=== PATIENT | male | born 1985 | race Caucasian/White ===

== ENCOUNTER 2019-07-13 09:34 | Emergency (ER) | payer OTHER, SELFPAY ==
[2019-07-13 09:49] VITALS: BP 118/73; PULSE 86; RESP 16; TEMP 36.6; O2SAT 99
--- NOTE | 2019-07-13 10:06 | ED.ALLEREA ---
HPI - Allergic Reaction General Chief complaint: Allergic Reaction Stated complaint: fever/headache/pos allergic reaction to medicine Time Seen by Provider: 07/13/19 10:07 Source: patient and RN notes reviewed History of Present Illness HPI narrative: Patient is a 33-year-old male that presents the urgent care with complaints of an infection to the second and third digits of the left foot. Patient states that he called tele-med on Saturday and was given Keflex. Patient states that he took the full days worth on Saturday and then 1 dose yesterday and both times he developed severe redness throughout his body. Patient states that he called tele-med back this morning and they told him to follow-up to make sure he did not have a blood infection . Patient is aware that we do not do labs at our facility. Patient denies any streaking or swelling of the area. States that it is pretty much unchanged since the infection started a few weeks ago. Patient denies any shortness of breath or difficulty breathing. Patient is also been using prescription cream as directed from tele-med. Denies any fever currently. Denies any nausea or vomiting. No other acute complaints. No acute distress noted. Patient had a plan of care. Related Data Allergies Allergy/AdvReac Type Severity Reaction Status Date / Time cephalexin [From Keflex] Allergy Redness of Verified 07/13/19 10:02 Skin Review of Systems Review of Systems: Narrative: CONSTITUTIONAL: Reports of intermittent fever EYES: Denies visual changes, redness, or discharge. ENT: Denies rhinorrhea, congestion, sore throat, or otalgia. CARDIOVASCULAR: Denies chest pain, palpitations, or edema. RESPIRATORY: Denies cough or dyspnea. GASTROINTESTINAL: Denies abdominal pain, nausea, vomiting, or diarrhea. GENITOURINARY: Denies dysuria or hematuria. SKIN: Reports of swelling, redness to second and third digit of left foot MUSCULOSKELETAL: Denies back pain, joint pain, or myalgia. NEUROLOGIC: Denies headache, numbness, or weakness. All other systems reviewed are negative, except as documented in HPI. [facility] Social History Social History Gender identity (if verbalized by the patient): Male Comments At the time of my signature, I reviewed and agree with the nursing past medical, surgical, social, and family history. There is no relevant family history pertinent to the patient complaint. Exam Narrative: Exam Narrative: GENERAL: This is a well-nourished, well-developed patient, in no apparent distress. HEAD: normocephalic, atraumatic. EYES: PERRL. Sclera clear/white. Vision is grossly intact. EARS: External ears normal NOSE: External nose normal with no obvious nasal discharge THROAT: Mucous membranes moist NECK: Neck supple CARDIOVASCULAR: Regular rate and rhythm without murmurs, gallops, or rubs. RESPIRATORY: Clear to auscultation. Breath sounds equal bilaterally. No wheezes, rales, or rhonchi. SKIN: Moderate erythema to second and third digits of the left foot NEURO: awake, alert, and oriented to person, place and time. There were no obvious focal neurologic abnormalities. EXTREMITIES: Mild to moderate edema and erythema to second and third digits of the left foot-capillary refill less than 2 seconds with positive strong left pedal pulse Course Vital Signs Vital signs: Vital Signs Temperature 97.9 F 07/13/19 09:49 Pulse Rate 86 07/13/19 09:49 Respiratory Rate 16 07/13/19 09:49 Blood Pressure 118/73 07/13/19 09:49 Pulse Oximetry 99 07/13/19 09:49 Temperature 97.9 F 07/13/19 09:49 Pulse Rate 86 07/13/19 09:49 Respiratory Rate 16 07/13/19 09:49 Blood Pressure 118/73 07/13/19 09:49 Pulse Oximetry 99 07/13/19 09:49 Reviewed MDM - Allergic Reaction MDM Narrative Medical decision making narrative: Advised the patient to continue to use prescription cream as directed to the area. Keep the toes/infection very clean. Keep them open to air while at home and n
== END 2019-07-13 10:20 | disposition home or self-care (01) ==
PROVIDERS: Emergency Provider Nurse Practitioner Family
DX: L03.032 Cellulitis of left toe (principal)
CPT/HCPCS: 99203; G0463